=== PATIENT | female | born 1955 | race Hispanic/Latino ===

== ENCOUNTER 2024-11-15 07:54 | Emergency (ER) | payer OTHER ==
[~2024-11-15] VITALS: Ht 149.9 cm; Wt 40.8 kg
--- NOTE | 2024-11-15 08:09 | ERN ---
General Chief Complaint: Medical Clearance Stated Complaint: MEDICAL CLEARANCE Time Seen by MD: 08:01 Source: patient, EMS History of Present Illness Initial Comments Patient is a 69-year-old female brought in by EMS for 2nd opinion. Per EMS patient was seen at another emergency room was taken due to insomnia. Patient was cleared with labs and imaging studies but family members state that they wanted a 2nd opinion per EMS family members are not at bedside. When evaluated patient she states he is fine and she does not want anything done. We will attempt to get labs from previous hospitalist since they are within 1-2 hours old. Allergies: Coded Allergies: No Known Drug Allergies (Unverified Allergy, Unknown, 11/15/24) Past Medical History Past Medical History: Unknown Past Surgical History: Unknown ROS Dictation CONSTITUTIONAL: No chills, no fever, weakness, no diaphoresis, no malaise. HEAD/FACE: No signs of trauma. EENT: No eye pain, no blurred vision, no tearing, no double vision, no ear pain, no ear discharge, no nose pain, no nasal congestion, no throat pain, no throat swelling, no mouth pain. RESPIRATORY: No cough, no orthopnea, no SOB, no stridor, no wheezing. CARDIOVASCULAR: No chest pain, no edema, no palpitations, no syncope. GASTROINTESTINAL/ABDOMINAL: No abdominal pain, no constipation, no diarrhea, no nausea, no vomiting. GENITOURINARY: No abnormal discharge, no dysuria, no frequent urination, no hematuria. No complaints of pain in the genitals. MUSCULOSKELETAL: No back pain, no gout, no joint pain, no joint swelling, no muscle pain, no muscle stiffness, no neck pain. INTEGUMENTARY: No change in color, no change in hair/nails, no dryness, no lesion, no lumps, no rash. NEUROLOGICAL/PSYCH: No anxiety, not depressed, no emotional problem, no headac he, no numbness, no pre-existing deficit, no history of seizures, no tremors, no weakness. HEMATOLOGIC/LYMPHATIC: Not anemic, no history of blood clots, no apparent bleeding, no bruising, glands not swollen. All Systems Negative, Except as Noted. Physical Exam Physical Exam Dictation VITAL SIGNS: Reviewed. GENERAL APPEARANCE: Alert, oriented x3, no acute distress, obese. HEAD AND FACE: Non-traumatic. EYES: PERRL, pink conjunctivas, eyelid no trauma, anterior chamber clear. EARS: Pinnas intact and no signs of trauma or erythema. Ear canals clear and no discharge. TMs no erythema. NOSE: No discharge, no bleeding. OROPHARYNX: Mouth normal, teeth no caries, tongue pink. Pharynx clear, no erythema. Tonsils no exudates, no abscesses noted. Mucous membrane moist. NECK: Supple, non-tender, no thyromegaly, no masses, no JVD, no bruits. BREAST: Deferred. CHEST: No tenderness, no crepitus, no paradoxical movement, no retractions. LUNGS: Clear, well-ventilated, symmetric, no rales, no wheezing, no rhonchi, no stridor, good breath sounds bilaterally. HEART: Regular rate, regular rhythm, no murmur, no gallops. VASCULAR: No peripheral edema. ABDOMEN: Soft, positive bowel sounds, nondistended, no guarding, nontender, no rebound, no masses no hepatomegaly, no splenomegaly, no Ponce's sign, no hernias. RECTAL: Deferred. GENITAL: Deferred. NEUROLOGICAL: Normal speech, gross motor function intact, gross sensory function intact. MUSCULOSKELETAL: Neck nontender, full range of motion, back nontender, full range of motion. EXTREMITIES: Nontender, full range of motion. SKIN: Color pink, dry, no turgor, no rash, no lacerations, no abrasions, no contusions. LYMPHATICS: Deferred. Results Laboratory and Microbiology Lab and Micro Result Laboratory Tests Test 11/15/24 08:29 White Blood Count 5.9 K/uL (4.8-10.8) Red Blood Count 4.85 MIL/uL (4.00-5.50) Hemoglobin 15.3 g/dL (12.0-16.0) Hematocrit 45.6 % (36-48) Mean Corpuscular Volume 94.0 fL (79-99) Mean Corpuscular Hemoglobin 31.5 pg (27.0-33.0) Mean Corpuscular Hemoglobin Concent 33.6 g/dL (32.0-36.0) Red Cell Distribution Width 13.3 % (11.0-15.5) Platelet Count 151 K/uL (130-400) Mean Platelet Volume 9.7 fL (7.5-10.5) Immature Granulocyte % (Auto) 0.3 % (0-1) Neutrophils (%) (Auto) 78.5 % (40.0-77.0) H Lymphocytes (%) (Auto) 14.7 % (21.0-51.0) L Monocytes (%) (Auto) 6.0 % (3.0-13.0) Eosinophils (%) (Auto) 0.0 % (0.0-8.0) Basophils (%) (Auto) 0.5 % (0.0-5.0) Neutrophils # (Auto) 4.6 K/uL (1.8-7.7) Lymphocytes # (Auto) 0.9 K/uL (1.0-4.8) L Monocytes # (Auto) 0.4 K/uL (0.1-1.0) Eosinophils # (Auto) 0.00 K/uL (0.00-0.70) Basophils # (Auto) 0.03 K/uL (0.00-0.20) Absolute Immature Granulocyte (auto 0.02 K/uL (0-1) Nucleated Red Blood Cells 0.0 % (0.0-0.19) Sodium Level 141 mmol/L (136-145) Potassium Level 3.0 mmol/L (3.5-5.1) *L Chloride Level 106 mmol/L (101-111) Carbon Dioxide Level 23 mmol/L (21-32) Blood Urea Nitrogen 18 mg/dL (7-18) Creatinine 0.5 mg/dL (0.5-1.0) Glomerular Filtration Rate Calc 101 mL/min (>90) Random Glucose 104 mg/dL (70-105) Total Calcium 8.4 mg/dL (8.5-10.1) L Magnesium Level 1.70 mg/dL (1.80-2.40) L Total Creatine Kinase 120 U/L (21-232) Troponin I High Sensitivity 15 ng/L (4-50) Labs Reviewed?: Yes EKG/XRAY/US/CT/MRI EKG Comment 11/15/2024 time 10:44 a.m. Ventricular rate 76 Sinus rhythm [place] [address] wave elevation or depression X-RAY Comment [address] [place] [address], [place] [id number] IMAGING REPORT Signed PATIENT: BRANDIE EMERSON MR#: [id number] : 1955 SEX: F AGE: 69 LOCATION: [facility] ORDER 9 STATUS: REG ER REPORT#: [id number] SERVICE 8 REASON: htn ORDERING PHYSICIAN: NAVEEN PANTOJA MD PROCEDURE: CXR1VW - CHEST 1VW EXAM: CR Chest, 1 View. CLINICAL HISTORY: htn COMPARISON: None provided. FINDINGS: LUNGS: There is no mass, infiltrate, or acute pulmonary abnormality. PLEURAL SPACES: No pleural effusion or pneumothorax. MEDIASTINUM: Cardiac size and mediastinal contours within normal limits. BONES: No aggressive appearing osseous lesion seen. IMPRESSION: No acute cardiopulmonary pathology is evident. /[place] DICTATED BY: ELIZ MORRELL MD DATE: 11/15/24 1013 ELECTRONICALLY SIGNED BY: ELIZ MORRELL MD DATE: 11/15/24 1013 [facility] MDM: Differential diagnosis: Generalized body, polysubstance abuse, electrolyte disbalance, dehydration, Rationale: Tests considered and ordered secondary to shared decision making include: Previous outside records reviewed: Old ER visits. Risk of complication and/or morbidity or mortality of patient management: None Medications-Per medication reconciliation Need for hospitalization: Patient melendez meet criteria for hospitalization. Need for emergency major/minor surgery: No There are no social concerns with this patient. Prescription drug management Prescriptions will include symptomatic care Patient's prior external medical records from other ER visits were reviewed by me as indicated. Prior testing and results from previous visits were reviewed. Prior tests were taken into account with medical decision making and resource utilization, independent historian/historians were used to obtain complete medical history. I independently interpreted the test that were performed, results were reviewed by me and considered findings on radiology if ordered. Medical management and examination interpretation discussions were had by me with other qualified healthcare professionals as indicated for the patient's care. Patient will be admitted under the care of hospitalist group for ongoing management ED Course Orders Procedure Category Date Status Time Cbc With Differential LAB 11/15/24 Complete 08:19 Chest 1vw RAD 11/15/24 Resulted 08:19 12 Lead Ekg Tracing- EKG 11/15/24 Complete Technical 08:19 Magnesium LAB 11/15/24 Complete 08:19 Creatine Kinase, Total LAB 11/15/24 Complete 08:19 Troponin I High LAB 11/15/24 Complete Sensitivity 08:19 Urinalysis Profile LAB 11/15/24 Logged 08:19 Basic Metabolic Panel LAB 11/15/24 Complete 08:19 Drug Screen Urine LAB 11/15/24 Logged 08:19 Potassium Bicarb/Cit PHA 11/15/24 Complete Ac 25meq (K-Lyte Ta 09:30 Potassium Chloride PHA 11/15/24 Complete 10meq/100ml ([place] 11:00 Magnesium 2gm Premix PHA 11/15/24 In Process 50ml (Magnesium 2gm 13:00 Current Medications Medications (Trade) Dose Ordered Sig/Chanel Route PRN Reason Start Time Stop Time Status Last Admin Dose Admin Magnesium Sulfate 50 ml @ 0 mls/hr PROTOCOL IV 11/15/24 13:00 12/15/24 12:59 Potassium Bicarbonate (K-Lyte Tablet Eff 25 Meq Tablet.eff) 50 meq ONCE ONCE PO 11/15/24 09:30 11/15/24 09:46 DC Potassium Chloride 100 ml @ 100 mls/hr ONCE ONCE IV 11/15/24 11:00 11/15/24 11:59 DC 11/15/24 11:02 Vital Signs Date Time Temp Pulse Resp B/P (MAP) Pulse Ox O2 Delivery O2 Flow Rate FiO2 11/15/24 13:02 79 20 176/89 95 Room Air* 0 11/15/24 10:30 78 20 169/84 97 Room Air* 0 11/15/24 08:18 98.1 77 20 199/84 97 Room Air* 0 11/15/24 08:00 98.4 70 18 174/77 97 DX & DISP Disposition: Inpatient Decision to Admit Time: 13:13 Departure Impression: Primary Impression: Dehydration Additional Impression: Electrolyte abnormality Condition: Stable Referrals: SELF,REFERRAL (PCP) NAVEEN PANTOJA MD Nov 15, 2024 08:09
--- NOTE | 2024-11-15 08:43 | NUR ---
PT ARRIVED HERE VIA EMS SENT BY [facility] DUE TO INCREASED LETHARGY AFTER BEING DISCHARGED BY [facility]. PT IS NONVERBAL AT THIS TIME. ABLE TO NOD YES OR NO BUT REFUSES TO SPEAK.
[2024-11-15 08:48] LABS: IMMATURE GRANULOCYTE ABSOLUTE 0.02 K/uL (0-1); NUCLEATED RED BLOOD CELLS 0.0 % (0.0-0.19); PLATELET COUNT (AUTO) 151 K/uL (130-400); RED BLOOD CELL COUNT(AUTO) 4.85 MIL/uL (4.00-5.50); RED CELL DISTRIBUTION WIDTH 13.3 % (11.0-15.5); WHITE BLOOD COUNT (AUTO) 5.9 K/uL (4.8-10.8)
--- NOTE | 2024-11-15 08:51 | NUR ---
PT ATTEMPTED TO LAY UNDERNEATH THE MATTRESS AT THIS TIME. PT STATES "I AM FINE I JUST WANT TO BE UNDER HERE" PT AA&O X3. DENIES PAIN AT THIS TIME. PADDED RAILS FOR PT SAFETY. KO[facility] FROM [facility] IS AT BEDSIDE AT THIS TIME.
[2024-11-15 09:10] LABS: CREATINE KINASE, TOTAL 120.0 U/L (21-232); CREATININE 0.5 mg/dL (0.5-1.0); GLOMERULAR FILTR. RATE CALC 101.0 mL/min (>90); GLUCOSE,RANDOM 104.0 mg/dL (70-105); SODIUM SERUM 141.0 mmol/L (136-145); UREA NITROGEN, BLOOD 18.0 mg/dL (7-18)
--- NOTE | 2024-11-15 09:14 | HMCIMG ---
EXAM: CR Chest, 1 View. CLINICAL HISTORY: htn COMPARISON: None provided. FINDINGS: LUNGS: There is no mass, infiltrate, or acute pulmonary abnormality. PLEURAL SPACES: No pleural effusion or pneumothorax. MEDIASTINUM: Cardiac size and mediastinal contours within normal limits. BONES: No aggressive appearing osseous lesion seen. IMPRESSION: No acute cardiopulmonary pathology is evident. /[place]
--- NOTE | 2024-11-15 09:35 | NUR ---
DAUGHTER DONNA CALLED AND ASKED WHY HER MOTHER WAS AT [facility]. TOLD HER THE REASON WHY [facility] SENT HER OUT HERE. DAUGHTER EXPLAINED SHE HAS BEEN IN THIS "EPISODE" FOR OVER A YEAR FOLLOWING THE PASSING OF HER . DAUGHTER AWARE OF PT CONDITION AT THIS TIME. IF ANY QUESTIONS ARISE, DAUGHTER IS ASKING TO CALL HER AT .
--- NOTE | 2024-11-15 10:32 | NUR ---
PT REFUSED TO DRINK PO POTASSIUM. AWARE.
--- NOTE | 2024-11-15 12:48 | EKG ---
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
[2024-11-15] MEDS ORDERED: MAGNESIUM 2GM PREMIX 50ML 50 ML IV SCH ×2 (13:00→14:00)
--- NOTE | 2024-11-15 13:23 | NUR ---
PT IS CURRENTLY PRAYING ALOUD. RIPPED OFF COBAND USED TO HOLD IV IN PLACE. REORIENTED PT TO NOT RIP OUT HER IV ELECTROLYTES ARE INFUSING AT THIS TIME.
[2024-11-15] MEDS ORDERED: PoTASSium chloRIDE 20MEQ ER 20 MEQ ERTAB PO PRN (13:30)
[2024-11-15] MEDS ORDERED: PoTASSium chl 10% ELIXIR 20MEQ 20 MEQ/15 ML UDCUP PO PRN (13:30)
[2024-11-15] MEDS ORDERED: DEXTROSE 50%-WATER 50 ML DISP.SYRIN IV PRN (13:30)
[2024-11-15] MEDS ORDERED: MAGNESIUM 2GM PREMIX 50ML 50 ML IV PRN (13:30)
[2024-11-15] MEDS ORDERED: GLUCAGON 1MG KIT 1 MG ML IM PRN (13:30)
[2024-11-15] MEDS ORDERED: guaiFENesin-DM 200/20MG 10ML PO PRN (14:00)
[2024-11-15] MEDS ORDERED: LACTULOSE 20 GM/30 ML UDCUP PO PRN (14:00)
[2024-11-15] MEDS ORDERED: PoTASSium chloRIDE 20MEQ ER 20 MEQ ERTAB PO ONE (14:00)
[2024-11-15] MEDS ORDERED: MAG/ALUM/SIMETH 30 ML UDCUP PO PRN (14:00)
[2024-11-15] MEDS ORDERED: NITROGLYCERIN 0.4 MG SL TAB SL PRN (14:00)
[2024-11-15] MEDS ORDERED: FAMOTIDINE 20MG VIAL IV PRN (14:00)
[2024-11-15 14:43] LABS: CREATININE 0.7 mg/dL (0.5-1.0); GLOMERULAR FILTR. RATE CALC 93.0 mL/min (>90); GLUCOSE,RANDOM 96.0 mg/dL (70-105); SODIUM SERUM 142.0 mmol/L (136-145); UREA NITROGEN, BLOOD 15.0 mg/dL (7-18)
--- NOTE | 2024-11-15 15:06 | NUR ---
GAVE REPORT TO CRYSTAL AT [facility].
[2024-11-15 15:50] VITALS: BP 169/89; PULSE 81; RESP 20; TEMP 98.3; O2SAT 97
[2024-11-15] MEDS ORDERED: FAMOTIDINE 20MG VIAL IV SCH (21:00)
--- NOTE | 2024-11-16 06:15 | HMCIMG ---
EXAM: Non-contrast CT examination of the Brain CLINICAL HISTORY: Headache. Insomnia. TECHNIQUE: Thin collimated axial CT images of the brain were obtained with sagittal and coronal reformatted images also submitted. CT scan done according to ALARA (As Low as Reasonably Achievable). CONTRAST USED: None. COMPARISON: None provided. FINDINGS: Diffuse age-related cerebral atrophy is evident by prominent cisterns, and sulcal spaces. No acute cortical infarction, hemorrhage, mass or mass effect. No hydrocephalus. No abnormal extra-axial fluid collections. The posterior fossa is unremarkable. The skull base and calvarium are intact. The included portions of the paranasal sinuses and right mastoid air cells are clear. Left mastoidectomy with hearing aid in situ. 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 IMPRESSION: No acute intracranial abnormality is present. Mild diffuse age-related cerebral atrophy. Left mastoidectomy with hearing aid in situ. 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 /[place]
[2024-11-16] MEDS ORDERED: amLODIPine 5 MG TAB PO SCH (09:00)
== END 2024-11-15 15:51 | disposition home or self-care (01) ==
LOC: EDH 07:54 → EEVIPCON 07:54 → UNDOADMIN 13:31 → EDHIP 13:31 → UNDODISIN 15:51
DX: E86.0 Dehydration (principal); G47.00 Insomnia, unspecified; I10 Essential (primary) hypertension
CPT/HCPCS: 99285; 96361; 96374; 70450; 71045; 82550; 83735; 84484; 80048 ×2; 85025; 36415; 93005; J3475; J0360; J3480 ×2; G0378